=== PATIENT | male | born 1980 | race Caucasian/White ===

== ENCOUNTER → 2024-11-17 13:13 | Outpatient (CLI) | payer OTHER, SELFPAY ==
--- NOTE | 2024-11-17 13:29 | EKG_ITS ---
[place] [address] [address] [place] [address] Test Date: 2024-11-17 Pat Name: Emery Szymanski Department: Room: Gender: Male Position Classification Specialist: : 1980 Requested By: Order Number: [id number] Reading MD: Measurements Intervals [place] Rate: 87 P: 79 MD: 168 QRS: -22 QRSD: 98 T: 53 QT: 354 QTc: 425 Interpretive Statements Normal sinus rhythm
--- NOTE | 2024-11-17 13:51 | DI.ECHO.S_ITS ---
[facility] : : [address] : : [place] : : [id number] : : Phone: [phone] Echocardiogram Report + + :Name: ZACK MOON Study Date: 11/17/2024 Height: 75 in : :Hospital ReadingLocation: Weight: 225 lb : : Gender: Male BSA: 2.3 m2 : :: 1980 Age: 43 yrs BP: 128/78 mmHg: :Reason For Study: HEART PALPITATIONS, SHORTNESS OF BREATH : :Ordering Physician: DARREN, : :SERAFIN Performed By: Michael Sandoval : :Referring: SERAFIN BANKS : + + Interpretation Summary The ejection fraction is estimated to be 55-60%. The right ventricle is mildly dilated. The right ventricular systolic function is normal. There is mild tricuspid regurgitation. The right ventricular systolic pressure is estimated to be at least 29 mmHg based on an estimated right atrial pressure of 8 mm Hg. The left atrium is mildly dilated. Procedure: A two-dimensional transthoracic echocardiogram with color flow and Doppler was performed. The study quality was technically good. There is no prior echocardiogram noted for this patient. The patient was in normal sinus rhythm during the exam. Left Ventricle: The left ventricle is normal in size. There is normal left ventricular wall thickness. There is no ventricular septal defect visualized. The ejection fraction is estimated to be 55-60%. There are no focal wall motion abnormalities. Diastolic parameters suggest probable normal left ventricular diastolic function and normal filling pressures. Right Ventricle: The right ventricle is mildly dilated. The right ventricular systolic function is normal. Atria: The left atrium is mildly dilated. Right atrial size is normal. There is no Doppler evidence for an interatrial shunt. Mitral Valve: The mitral valve leaflets are mildly calcified. Calcified mitral apparatus. There is trace mitral regurgitation. Aortic Valve: The aortic valve is trileaflet. The aortic valve opens well. No aortic regurgitation is present. Tricuspid Valve: The tricuspid valve leaflets are thin and pliable. There is mild tricuspid regurgitation. The right ventricular systolic pressure is estimated to be at least 29 mmHg based on an estimated right atrial pressure of 8 mm Hg. Pulmonic Valve: The pulmonic valve leaflets are thin and pliable; valve motion is normal. There is trace pulmonic regurgitation. Great Vessels: The aortic root is normal size. The dimensions of the ascending aorta are normal. The pulmonary artery is normal size. The IVC is dilated (diameter is greater than 2.1 cm) yet it collapses greater than 50% with a sniff. This suggests a right atrial pressure of 8 mm Hg. Pericardium/ Pleura There is no pericardial effusion. There is no pleural effusion. MMode/2D Measurements & Calculations LVIDd: 5.3 cm LVOT diam: 2.4 cm LVIDs: 3.5 cm Ao root diam: 3.6 cm FS: 34.6 % asc Aorta Diam: 3.4 cm EPSS: 0.80 cm Ao Arch Diam (Prox Trans): 1.5 cm IVSd: 0.96 cm LVPWd: 1.0 cm LV harman. diameter/BSA (cm/m^2): 2.3 LV sys. diameter/BSA (cm/m^2): 1.5 LA A2 area: 24.0 cm2 RA long axis: 5.3 cm LA A4 area: 24.1 cm2 RA area: 18.1 cm2 LA length (vol): 5.8 cm RA vol: 52.7 ml LA vol: 85.2 ml RA : 22.8 ml/m2 LA vol index: 36.9 ml/m2 IVC diam: 2.4 cm RVD1 (basal): 4.0 cm RVD2 (mid): 3.6 cm TAPSE: 2.1 cm Doppler Measurements & Calculations Ao V2 max: 161.3 cm/sec LVOT Max Kirt: 111.2 cm/sec Ao V2 mean: 104.9 cm/sec LV V1 max P.9 mmHg Ao max P.4 mmHg LV V1 VTI: 25.0 cm Ao mean P.0 mmHg SHELBIE(I,D): 3.7 cm2 Ao V2 VTI: 29.9 cm SHELBIE(V,D): 3.0 cm2 sev ratio: 0.84 SHELBIE indexed to BSA (cm^2/m^2): 1.6 MV E max kirt: 65.2 cm/sec TR max kirt: 231.3 cm/sec MV A max kirt: 54.5 cm/sec TR max P.4 mmHg MV E/A: 1.2 PA V2 max: 137.1 cm/sec Med Peak E' Kirt: 10.0 cm/sec PA V2 mean: 89.5 cm/sec E/E' med: 6.5 PA mean P.8 mmHg Lat Peak E' Kirt: 17.7 cm/sec PA pr(Accel): 63.6 mmHg E/E' lat: 3.7 E/e' average: 5.1 MV dec time: 0.31 sec SVLVOT): 110.4 ml Reading Physician:03:07 PM
== END ==
PROVIDERS: Referring Provider Chiropractor; Visit Provider Chiropractor
DX: I07.1 Rheumatic tricuspid insufficiency (principal); R00.2 Palpitations; R06.02 Shortness of breath
CPT/HCPCS: 93005; 93306

== ENCOUNTER → 2024-11-17 13:18 | Outpatient (CLI) | payer OTHER, SELFPAY | PROVIDERS: Referring Provider Chiropractor; Visit Provider Chiropractor | DX: R00.2 Palpitations (principal); R06.02 Shortness of breath; Z87.891 Personal history of nicotine dependence; J98.8 Other specified respiratory disorders; R94.2 Abnormal results of pulmonary function studies | CPT/HCPCS: 94060 ==